=== PATIENT | female | born 2000 | race Caucasian/White ===

== ENCOUNTER 2021-12-18 13:44 | Emergency (ER) | payer BC ==
[~2021-12-18] VITALS: Ht 162.6 cm; Wt 61.0 kg
[2021-12-18] MEDS ORDERED: OLANZAPINE 10 MG/VIAL IM ONE ×2 (14:30→15:30)
[2021-12-18] MEDS ORDERED: LORAZEPAM 2MG/ML CPJ IV ONE ×2 (14:30→19:00)
[2021-12-18 14:57] LABS: BASOPHILS % 0.3 % (0.0-2.0); EOSINOPHILS % 0.6 % (0.0-5.0); HEMATOCRIT. 35.4 % (36.0-48.0); HEMOGLOBIN. 11.8 g/dL (12.0-16.0); LYMPHOCYTES % 13.6 % (20.0-50.0); MEAN CORPUSCULAR HEMOGLOBIN 25.2 pg (28.0-32.0); MEAN CORPUSCULAR VOLUME 75.6 fL (81.0-99.0); MONOCYTES % 5.5 % (2.0-8.0); RED BLOOD CELL COUNT 4.69 mill/uL (4.2-5.4); RED CELL DISTRIBUTION WIDTH 20.7 % (11.6-14.6)
[2021-12-18 15:06] LABS: CHLORIDE 101 mEq/L (98-107)
[2021-12-18 15:10] LABS: ETHANOL BLOOD < 10 mg/dL
[2021-12-18 15:28] LABS: HCG SCREEN NEGATIVE
[2021-12-18 16:07] LABS: MEAN PLATELET VOLUME 8.3 fl (7.4-10.4); PLATELET 91 x1000/uL (130-400)
[2021-12-18] MEDS ORDERED: ZIPRASIDONE MESYLATE 20MG/VIAL IM ONE (16:15)
[2021-12-18 18:00] LABS: CLARITY URINE CLEAR (CLEAR); COLOR URINE YELLOW (YELLOW); KETONES URINE NEGATIVE (NEGATIVE); LEUKOCYTE ESTERASE URINE NEGATIVE (NEGATIVE); NITRITE URINE NEGATIVE (NEGATIVE); OCCULT BLOOD URINE 3+ (NEGATIVE); PH URINE 6.5 (4.5-8.0); PROTEIN URINE NEGATIVE (NEGATIVE); SPECIFIC GRAVITY URINE 1.003 (1.005-1.030); UROBILINOGEN URINE 0.2 E.U./dL (0.2-1.0)
[2021-12-18 18:14] LABS: *BARBITURATES SCREEN URINE NEGATIVE (NEGATIVE); *BENZODIAZEPINES SCREEN URINE NEGATIVE (NEGATIVE); *COCAINE SCREEN URINE NEGATIVE (NEGATIVE)
[2021-12-18 18:15] LABS: METHADONE URINE SCREEN NEGATIVE (NEGATIVE); OPIATES URINE SCREEN NEGATIVE (NEGATIVE); PHENCYCLIDINE URINE SCREEN NEGATIVE (NEGATIVE)
[2021-12-18 18:18] LABS: *AMPHETAMINES SCREEN URINE PRESUMTIVE POSITIVE (NEGATIVE); CANNABINOID URINE SCREEN PRESUMTIVE POSITIVE (NEGATIVE)
[2021-12-18] MEDS ORDERED: LORAZEPAM 2MG/ML CPJ IM PRN (19:15)
[2021-12-19] MEDS ORDERED: ACETAMINOPHEN 500MG TABLET PO ONE (01:15)
[2021-12-19] MEDS ORDERED: DIPHENHYDRAMINE 50MG CAPSULE PO ONE (01:15)
[2021-12-19] MEDS: OLANZAPINE 5MG TABLET PO SCH ×2 (13:05→21:52)
[2021-12-19] MEDS ORDERED: HYDROXYZINE 25MG TABLET PO PRN (13:41)
[2021-12-19] MEDS ORDERED: ACETAMINOPHEN 325MG TABLET PO ONE (23:00)
[2021-12-19] MEDS ORDERED: SULFAMETHOXAZOLE/TRIMETHOPRIM 800/160MG TABLET PO ONE (23:15)
[2021-12-20] MEDS: SULFAMETHOXAZOLE/TRIMETHOPRIM 800/160MG TABLET PO SCH ×2 (10:19→22:07)
[2021-12-20] MEDS: OLANZAPINE 5MG TABLET PO SCH ×2 (10:19→22:06)
[2021-12-21] MEDS: OLANZAPINE 5MG TABLET PO SCH (09:53)
[2021-12-21] MEDS: SULFAMETHOXAZOLE/TRIMETHOPRIM 800/160MG TABLET PO SCH (09:53)
[2021-12-21 16:08] VITALS: BP 110/73
== END 2021-12-21 16:45 ==
LOC: ER 13:44
DX: F23 Brief psychotic disorder (principal); S80.812A Abrasion, left lower leg, initial encounter; S80.811A Abrasion, right lower leg, initial encounter; S80.12XA Contusion of left lower leg, initial encounter; S80.11XA Contusion of right lower leg, initial encounter; R45.851 Suicidal ideations; R41.82 Altered mental status, unspecified; F15.10 Other stimulant abuse, uncomplicated; F32.9 Major depressive disorder, single episode, unspecified; X78.9XXA Intentional self-harm by unspecified sharp object, initial encounter; Y93.89 Activity, other specified; Y92.9 Unspecified place or not applicable; Z20.822 Contact with and (suspected) exposure to COVID-19
CPT/HCPCS: 36415; 70450; 71250; 74176; 80053; 80305; 80307; 80320; 80329; 81003; 81025; 84703; 85025; 96372; 96374; 99291; C9803; J2060; J3486; J3490; U0003; U0005; Q0163; G0480

== ENCOUNTER 2024-04-20 10:55 | Emergency (ER) | payer BC, MEDICAID ==
[~2024-04-20] VITALS: Ht 167.6 cm; Wt 68.0 kg
[2024-04-20 10:57] VITALS: O2SAT 97
[2024-04-20] MEDS: OLANZAPINE 10 MG/VIAL IM ONE (11:14)
[2024-04-20] MEDS: LORAZEPAM 2MG/ML INJ IM ONE (11:14)
[2024-04-20 11:31] LABS: BASOPHILS % 0.6 % (0.0-2.0); EOSINOPHILS % 2.1 % (0.0-5.0); HEMATOCRIT. 31.4 % (36.0-48.0); HEMOGLOBIN. 9.9 g/dL (12.0-16.0); LYMPHOCYTES % 50.6 % (20.0-50.0); MEAN CORPUSCULAR HEMOGLOBIN 21.2 pg (28.0-32.0); MEAN CORPUSCULAR HGB CONC 31.5 g/dL (31.0-37.0); MEAN CORPUSCULAR VOLUME 67.2 fL (81.0-99.0); MEAN PLATELET VOLUME 8.5 fl (7.4-10.4); MONOCYTES % 5.8 % (2.0-8.0); NEUTROPHILS % 40.9 % (40.0-76.0); PLATELET 382 x1000/uL (130-400); RED BLOOD CELL COUNT 4.68 mill/uL (4.2-5.4); RED CELL DISTRIBUTION WIDTH 24.1 % (11.6-14.6); WHITE BLOOD COUNT 7.4 x1000/uL (4.5-11.0)
[2024-04-20 11:35] LABS: CHLORIDE 106 mEq/L (98-107); POTASSIUM 3.8 mEq/L (3.5-5.1); SODIUM 139 mEq/L (136-145)
[2024-04-20 11:36] LABS: CALCIUM 9.7 mg/dL (8.7-10.4); CARBON DIOXIDE 21 mEq/L (21-32)
[2024-04-20 11:41] LABS: CREATININE 0.7 mg/dL (0.6-1.0); GLUCOSE 93 mg/dL (70-105); UREA NITROGEN BLOOD 9 mg/dL (9-23)
[2024-04-20 11:46] LABS: HCG SCREEN NEGATIVE
[2024-04-20 11:47] LABS: ETHANOL BLOOD < 10 mg/dL (<10)
[2024-04-20 11:56] LABS: ADD RBC MORPHOLOGY YES; DIFFERENTIAL COMMENT 1
[2024-04-20 12:42] LABS: ANISOCYTOSIS 3+; HYPOCHROMASIA 1+; MICROCYTOSIS 2+; PLATELET ESTIMATE NORMAL
[2024-04-20 13:21] LABS: CLARITY URINE CLEAR (CLEAR); COLOR URINE YELLOW (YELLOW); GLUCOSE URINE NEGATIVE (NEGATIVE); KETONES URINE NEGATIVE (NEGATIVE); LEUKOCYTE ESTERASE URINE NEGATIVE (NEGATIVE); NITRITE URINE NEGATIVE (NEGATIVE); OCCULT BLOOD URINE NEGATIVE (NEGATIVE); PROTEIN URINE NEGATIVE (NEGATIVE); SPECIFIC GRAVITY URINE 1.005 (1.005-1.030); UROBILINOGEN URINE 0.2 E.U./dL (0.2-1.0)
[2024-04-20 13:35] LABS: *AMPHETAMINES SCREEN URINE NEGATIVE (NEGATIVE); *BARBITURATES SCREEN URINE NEGATIVE (NEGATIVE); *BENZODIAZEPINES SCREEN URINE NEGATIVE (NEGATIVE); *COCAINE SCREEN URINE NEGATIVE (NEGATIVE); CANNABINOID URINE SCREEN NEGATIVE (NEGATIVE); ECSTASY MDMA SCREEN URINE NEGATIVE (NEGATIVE); METHADONE URINE SCREEN NEGATIVE (NEGATIVE); OPIATES URINE SCREEN NEGATIVE (NEGATIVE); PHENCYCLIDINE URINE SCREEN NEGATIVE (NEGATIVE)
[2024-04-21] MEDS: ACETAMINOPHEN 325MG TABLET PO ONE (04:18)
[2024-04-21 09:40] VITALS: BP 118/68; PULSE 72; RESP 16; TEMP 98.1
== END 2024-04-21 12:33 | disposition short-term general hospital (02) ==
LOC: ER 11:07
DX: R45.851 Suicidal ideations (principal); F31.9 Bipolar disorder, unspecified; Z20.822 Contact with and (suspected) exposure to COVID-19
CPT/HCPCS: 80305; 80048; 81003; 80320; 84703; 85025; 36415; 96372; 99291; 87426; J3490; J2060; Z7610 ×3; C1893; G0480